=== PATIENT | male | born 1960 | race Caucasian/White ===

== ENCOUNTER 2024-09-19 21:12 | Emergency (ER) | payer MEDICARE, SELFPAY ==
--- NOTE | 2024-09-19 21:10 | CT_ITS ---
PROCEDURE INFORMATION: Exam: CTA Neck With Contrast Exam date and time: 09/19/2024 9:17 PM Age: 64 years old Clinical indication: Stroke-like symptoms; Other: Stroke alert TECHNIQUE: Imaging protocol: Computed tomographic angiography of the neck with contrast. Exam focused on the cervical segments of the vasculature. 3D rendering (Not supervised by radiologist): MIP and/or 3D reconstructed images were created by the technologist. Radiation optimization: All CT scans at this facility use at least one of these dose optimization techniques: automated exposure control; mA and/or kV adjustment per patient size (includes targeted exams where dose is matched to clinical indication); or iterative reconstruction. Contrast material: ISO 370; Contrast volume: 80 ml; Contrast route: INTRAVENOUS (IV); COMPARISON: CT ANGIO HEAD 09/19/2024 9:17 PM FINDINGS: Right common carotid artery: No stenosis. No dissection or occlusion. Right internal carotid artery: There is calcified and soft plaque in the proximal right internal carotid artery with 90% stenosis. Right external carotid artery: No occlusion or stenosis of the origin. Left common carotid artery: No stenosis. No dissection or occlusion. Left internal carotid artery: There are calcified plaques in the proximal left internal carotid artery with 20% stenosis. The distal extracranial segment is mildly ectatic. Left external carotid artery: No occlusion or stenosis of the origin. Right vertebral artery: There is a calcified plaque at the origin of the right vertebral artery which is partly obscured by artifact. Stenosis appears mild. No stenosis of the V2 or V3 segments. Left vertebral artery: There is a calcified plaque at the origin of the left vertebral artery with mild stenosis. Lymph nodes: There are multiple large calcified lymph nodes in the mediastinum. Soft tissues: Normal. No significant soft tissue swelling. Bones/joints: Spondylosis and disc space narrowing at C4-C5 and C5-C6. IMPRESSION: 1. Calcified and soft plaque in the proximal right internal carotid artery with 90% stenosis. 2. 20% stenosis of the proximal left internal carotid artery. 3. Mild stenosis of the origins of the vertebral arteries. 4. Markedly enlarged and calcified lymph nodes noted in the visible portion of the mediastinum REFERENCES: NASCET CRITERIA. The degree of stenosis in the cervical segment of the internal carotid artery is based on NASCET criteria. Normal is no stenosis. Mild is less than 50% stenosis. Moderate is 50-69% stenosis. Severe is 70% to 99% stenosis. Total occlusion is no detectable patent lumen.
--- NOTE | 2024-09-19 21:10 | CT_ITS ---
PROCEDURE INFORMATION: Exam: CT Head Without Contrast Exam date and time: 09/19/2024 9:13 PM Age: 64 years old Clinical indication: Stroke-like symptoms; Other: Stroke alert TECHNIQUE: Imaging protocol: Computed tomography of the head without contrast. Radiation optimization: All CT scans at this facility use at least one of these dose optimization techniques: automated exposure control; mA and/or kV adjustment per patient size (includes targeted exams where dose is matched to clinical indication); or iterative reconstruction. Other technique: STROKE PROTOCOL was implemented. COMPARISON: No relevant prior studies available. FINDINGS: Limitations: Reconstructions were performed at oblique angles. No coronal or sagittal reconstructions. Brain: There is volume loss. There is periventricular white matter lucency most consistent with chronic microvascular disease. No acute infarct is identified. There is no hemorrhage or extra-axial collection. Cerebral ventricles: No ventriculomegaly. Paranasal sinuses: Visualized sinuses are unremarkable. No fluid levels. Mastoid air cells: Visualized mastoid air cells are well aerated. Bones: Unremarkable. No acute fracture. Soft tissues: Unremarkable. IMPRESSION: 1. Volume loss and chronic microvascular disease. 2. No acute intracranial lesion or injury ASSESSMENT: ASPECTS ([place] Stroke Program Early CT Score) is 10.
--- NOTE | 2024-09-19 21:10 | CT_ITS ---
PROCEDURE INFORMATION: Exam: CTA Head With Contrast, Arteriography Exam date and time: 09/19/2024 9:17 PM Age: 64 years old Clinical indication: Stroke-like symptoms; Other: Stroke alert TECHNIQUE: Imaging protocol: Computed tomographic angiography of the head with contrast. Exam focused on the arteries. 3D rendering (Not supervised by radiologist): MIP and/or 3D reconstructed images were created by the technologist. Radiation optimization: All CT scans at this facility use at least one of these dose optimization techniques: automated exposure control; mA and/or kV adjustment per patient size (includes targeted exams where dose is matched to clinical indication); or iterative reconstruction. Contrast material: ISO 370; Contrast volume: 80 ml; Contrast route: INTRAVENOUS (IV); COMPARISON: CT HEAD/BRAIN WO CON 09/19/2024 9:13 PM FINDINGS: Limitations: No coronal or sagittal reconstructions. Reconstructions were performed in oblique planes. ANTERIOR CIRCULATION: Right internal carotid artery: Intracranial segment is patent with no significant stenosis. No aneurysm. Right middle cerebral artery: No occlusion or significant stenosis. No aneurysm. Right anterior cerebral artery: No occlusion or significant stenosis. No aneurysm. Left internal carotid artery: Intracranial segment is patent with no significant stenosis. No aneurysm. Left middle cerebral artery: As seen on series 7 images [id number], complete occlusion of proximal left MCA M2 segment. This is also seen on sagittal reconstructions [id number] and coronal reconstructions 60-60 to Left anterior cerebral artery: No occlusion or significant stenosis. No aneurysm. POSTERIOR CIRCULATION: Right vertebral artery: No occlusion or significant stenosis. No aneurysm. Left vertebral artery: No occlusion or significant stenosis. No aneurysm. Basilar artery: No occlusion or significant stenosis. No aneurysm. Right posterior cerebral artery: No occlusion or significant stenosis. No aneurysm. Left posterior cerebral artery: No occlusion or significant stenosis. No aneurysm. Brain: No definite mass, mass effect, or midline shift. See head CT Cerebral ventricles: No ventriculomegaly. Bones/joints: Unremarkable. No acute fracture. Soft tissues: Unremarkable. IMPRESSION: Left MCA M2 occlusion
[2024-09-19 21:12] VITALS: BP 200/122; PULSE 74; RESP 18; TEMP 37.2; O2SAT 98; BMI 51.3
[2024-09-19] MEDS: 0.9 % SODIUM CHLORIDE 50 ML VIAL IV (21:30)
[2024-09-19] MEDS: SODIUM CHLORIDE 0.9% 10ML SYR (RAD ONLY) 10 ML IV (21:30)
[2024-09-19] MEDS: IOPAMIDOL-370 (76%);100ML BOTTLE 80 ML IV (21:30)
--- NOTE | 2024-09-19 21:31 | PC.NURSE ---
images being shared with [facility]
--- NOTE | 2024-09-19 21:36 | HMH.EDGENADL ---
Discharge Plan Disposition Chief Complaint: Neuro Symptoms/Deficit Clinical Impressions Clinical Impression: Cerebrovascular accident Print Language Print Language: Tajik Discharge ED Provider: Mandy Larios General Adult HPI General Chief complaint: Neuro Symptoms/Deficit Stated complaint: stroke alert Time Seen by Provider: 09/19/24 21:27 Mode of Arrival: EMS Source of Information: EMS Limitations: Altered Mental Status Description of Symptoms (Recalled from ER Triage Doc. by RN): Pt arrived via ems from home, found by family to have R sided weakness/ams. LKN 1300, blood sugar 60 mg/dl on scene. FSBF 259 now during triage after 1 amp of d10. code stroke called at 2107 History of Present Illness HPI narrative: Patient is a 64-year-old with no known past medical history who presents today with acute right-sided weakness and altered mental status last known normal 1300 per EMS. Blood sugar was normal. He went straight to CT scan after being stroke alerted in the field CT angios and noncontrasted CT scan of the head were performed by stroke protocol. Further history unable to be obtained secondary patient's clinical status. Related Data Allergies Allergy/AdvReac Type Severity Reaction Status Date / Time No Known Allergies Allergy Verified 08/15/19 10:32 [facility] Disclaimer: The information contained in this section may have been updated after the patient was seen, as this information can be updated by other users. Social History Smoking Status: Unknown if ever smoked alcohol intake: never current occupational status: other Travel in the last 8 weeks: None ROS Obtained: Yes All systems reviewed & no additional complaints except as documented Physical Exam General General appearance: other (Patient is awake but not interactive with me) Respiratory Respiratory exam: Present normal lung sounds bilaterally Cardiovascular Cardiovascular exam: Present regular rate Neurological Exam Neurological exam: Present other (Awake he has flaccid paralysis of his right upper and right lower extremity he is moving his left upper and left lower extremity given his profound aphasia and being mute further neurologic exam unable to be obtained NIH stroke scale per my evaluation is 18) Medical Decision Making Medical Records Screening: Per USPSTF and CDC recommendations, given the prevalence of disease in our region, it is our hospital?s policy to screen for HIV and viral Hepatitis for all patients aged 18 and over and those with ongoing risk factors. Justin Inquiry Pt receiving controlled substance: No Vital Signs: 09/19/24 21:12 Temperature 98.9 F Temperature Source Rectal Pulse Rate [Apical] 74 Respiratory Rate 18 Blood Pressure [Right Arm] 200/122 H Blood Pressure Mean [Right Arm] 148 02 Sat by Pulse Oximetry 98 Oxygen Delivery Method Room Air Orders (Tests/Meds): ED MEDICATIONS Generic Name Dose Route Start Last Admin Trade Name Torsten PRN Reason Stop Dose Admin Sodium Chloride 1,000 mls @ 999 mls/hr 09/19/24 21:45 Sod Chlor 0.9% 1000ml Bag IV 09/19/24 22:45 .[id number] LINNETTE Discontinued Medications Generic Name Dose Route Start Last Admin Trade Name Torsten PRN Reason Stop Dose Admin Iopamidol 80 ml 09/19/24 21:25 09/19/24 21:30 Iopamidol-370 (76%);100ml Bottle IV 09/19/24 21:26 80 ml ONCE ONE Administration Sodium Chloride 50 ml 09/19/24 21:25 09/19/24 21:30 0.9 % Sodium Chloride 50 Ml Vial IV 09/19/24 21:26 50 ml ONCE ONE Administration Sodium Chloride 10 ml 09/19/24 21:25 09/19/24 21:30 Sodium Chloride 0.9% 10ml Syr (Rad Only) IV 09/19/24 21:26 10 ml ONCE ONE Administration ORDERS Category Date Time Status CT angio head Stat Cat Scan 09/19/24 21:[address] angio neck Stat Cat Scan 09/19/24 21:[address] head/brain wo con Stat Cat Scan 09/19/24 21:10 Completed CXR --portable [XR chest portable] Stat Exams 09/19/24 21:40 Taken CBC w/Auto Diff [Complete Blood Count Auto Diff] Stat Lab 09/19/24 21:34 Received CMP [Comprehensive Metabolic Panel] Stat Lab 09/19/24 21:34 Received HIV (1&2) Antibody Rapid Stat Lab 09/19/24 21:34 Received Hep C Ab with Reflex to RNA Stat Lab 09/19/24 21:34 Received PT/PTT Stat Lab 09/19/24 21:34 Received Trop I [Troponin I] Stat Lab 09/19/24 21:34 Received Troponin I Q3H Lab 09/20/24 00:45 Ordered Troponin I Q3H Lab 09/20/24 03:45 Ordered Medical Decision Narrative: Patient is a 64 yo presenting with acute change in mental status and R sided weakness. NIHSS 18. This is highly concerning for a cortical stroke or an LVO. He is outside of any window for thrombolytics. He is hypertensive 207/128. Allowing for permissive hypertension at the moment as we will not be acutely dropping for thrombolytics. Sharing imaging with [facility]. CT scans performed which I personally interpreted which showed no intracranial hemorrhage however there is an acute left M1 occlusion. Images were shared Mumboe refugio. Dr. Black with [facility] neurosurgery accepted the patient for thrombectomy. Patient was accepted to go to the [place] emergency department and then straight to thrombectomy. Neurosurgery is aware the patient. He is on the ED expected board. Patient is hypertensive no further inventions done. Family was made aware of this patient weighs nearly 400 pounds we are trying to see if the patient can fly. Patient will be transferred as quickly as possible. Critical Care Critical Care Time Critical Care Time: Yes Attestation: On , the high probability of a clinically significant, sudden or life threatening deterioration of the following system(s) required my full and direct attention, intervention and personal management. The time I documented below is in addition to time spent performing reported procedures but includes the following listed in this critical care notation. Total Time Total Critical Care Time: 35
--- NOTE | 2024-09-19 21:40 | XR_ITS ---
PROCEDURE INFORMATION: Exam: XR Chest Exam date and time: 09/19/2024 9:39 PM Age: 64 years old Clinical indication: Dyspnea TECHNIQUE: Imaging protocol: Radiologic exam of the chest. Views: 1 view. COMPARISON: CT ANGIO NECK 09/19/2024 9:17 PM FINDINGS: Lungs: Unremarkable. No consolidation. Pleural spaces: Unremarkable. No pleural effusion. No pneumothorax. Heart/Mediastinum: Extensively calcified right paratracheal round densities. Bones/joints: Unremarkable. IMPRESSION: 1. Extensive round calcified densities in the right paratracheal region presumably calcified lymph nodes. Differential is calcified mass. 2. No acute findings
--- NOTE | 2024-09-19 21:40 | ECG_ITS ---
APPROVED REPORT Exam: Resting ECG HR:68 bpm ECG Measurements Heart Rate 68 AXES QRSd 109 QRS -55 QT 418 T 68 QTc 436 Conclusion ATRIAL FIBRILLATION LEFT AXIS DEVIATION [QRS AXIS < -30] ANTEROSEPTAL MYOCARDIAL INFARCTION , OF INDETERMINATE AGE [40+ ms Q WAVE IN V1-V4] ABNORMAL ECG UNCONFIRMED REPORT Electronically signed by : Ronnell Larios, 09/19/2024 23:11:07
[2024-09-19] MEDS: 0.9 % SODIUM CHLORIDE 1000ML 1,000 ML 999 ML IV (21:54)
[2024-09-19 21:56] LABS: Basophils # 0.1 K/mm3 (0-0.2); Basophils % 1.3 % (0.1-2.0); Eosinophils # 0.1 K/mm3 (0.0-0.4); Eosinophils % 1.5 % (0.1-12.0); Hematocrit 50.6 % (42.0-52.0); Hemoglobin 16.7 g/dL (14.1-18.0); Lymphocytes # 1.4 K/mm3 (0.7-4.5); Lymphocytes % 22.9 % (10-50); Mean Corpuscular HGB Conc 32.9 g/dL (31.8-35.4); Mean Corpuscular Volume 94.2 fl (80-94); Mean Platelet Volume 9.5 fl (7.4-10.4); Monocytes # 0.4 K/mm3 (0.1-1.0); Monocytes % 6.4 % (1.7-9.3); Neutrophils # 4.1 K/mm3 (1.8-7.8); Neutrophils % 67.9 % (37.0-80.0); Platelet Count 146 K/mm3 (142-424); Red Blood Count 5.37 M/mm3 (4.60-6.20); Red Cell Distribution Width 14.2 % (11.5-17.5)
--- NOTE | 2024-09-19 21:57 | PC.NURSE ---
per Dr. Larios, [facility] called and he is aware of the read
[2024-09-19 22:00] LABS: Albumin Level 3.7 g/dl (3.5-5.0); Chloride 101 mmol/L (98-107); Potassium 3.8 mmoL/L (3.5-5.1); Sodium 137 mmol/L (136-145)
[2024-09-19 22:03] LABS: Alanine Aminotransferase 19 U/L (12-78); Albumin/Globulin Ratio 1.2 (1.1-1.8); Alkaline Phosphatase 92 U/L (38-126); Anion Gap 5.8 mEq/L (5-15); Aspartate Amino Transferase 29 U/L (17-59); Bilirubin,Total 0.8 mg/dl (0.2-1.3); Blood Urea Nitrogen 21 mg/dl (9-20); Carbon Dioxide 34 mmol/L (22.0-30.0); Creatinine Clearance Estimated 86 mL/min (50-200); Estimated Glomerular Filt Rate 75 ml/min (>60); GFR (African American) 91 ML/MIN (>60); Globulin 3.1 g/dL (1.3-3.2); Total Protein,Serum 6.8 g/dl (6.3-8.2)
[2024-09-19 22:04] LABS: Calcium 8.6 mg/dl (8.4-10.2); Glucose 216 mg/dl (74-100)
[2024-09-19 22:21] LABS: Troponin I 0.01 ng/ml (0.00-0.034)
[2024-09-19 22:27] LABS: Activated Partial Thrombo Time 28.4 seconds (22.8-30.6); INR 0.97 (0.9-1.1); Prothrombin Time 10.9 seconds (10.1-12.5)
[2024-09-19 22:45] VITALS: BP 200/111; PULSE 90; RESP 18; TEMP 37.2; O2SAT 97
[2024-09-19 22:52] VITALS: BP 200/111; PULSE 87; RESP 20; TEMP 37.2; O2SAT 98
[2024-09-19 23:13] LABS: HIV (1&2) Antibody Rapid NONREACTIVE (NONREACTIVE)
[2024-09-21 08:08] LABS: HCV Ab Non Reactive (Non Reactive)
== END 2024-09-19 22:45 | disposition short-term general hospital (02) ==
PROVIDERS: Emergency Provider Student in an Organized Health Care Education/Training Program
DX: I63.512 Cerebral infarction due to unspecified occlusion or stenosis of left middle cerebral artery (principal); R41.82 Altered mental status, unspecified; G81.91 Hemiplegia, unspecified affecting right dominant side; I10 Essential (primary) hypertension
CPT/HCPCS: 70450; 70496; 70498; 71045; 80053; 84484; 85025; 85610; 85730; 86803; 87389; 93005; 96360; 99291; J7030; Q9967

== ENCOUNTER 2024-11-10 08:49 | Outpatient (CLI) | payer MEDICARE, SELFPAY ==
--- NOTE | 2024-11-10 09:01 | XR_ITS ---
FINAL REPORT CLINICAL HISTORY: pain, fall COMPARISON: None FINDINGS: BILATERAL RIBS WITH CHEST Chest: The heart is normal in size. There are large bulky calcified right paratracheal lymph nodes measuring up to 11 x 6 cm in craniocaudal and transverse dimension. The lungs are clear. There is no pneumothorax. Ribs: 3 views demonstrate no acute displaced fracture. The visualized bony structures are well aligned. IMPRESSION: Large bulky right paratracheal adenopathy. No obvious rib fracture. Reviewed, Interpreted and Dictated by Sudhir Salgado MD Transcribed by Jess Dobson Authenticated and . [facility]
--- NOTE | 2024-11-10 09:01 | XR_ITS ---
FINAL REPORT CLINICAL HISTORY: pain COMPARISON: None FINDINGS: RIGHT SHOULDER Three views demonstrate no acute fracture or dislocation. The visualized joint spaces are normally aligned. The soft tissues are unremarkable. There is a large bulky presumed calcified mediastinal lymph node partially visualized in the medial chest. IMPRESSION: No acute bony abnormality. Reviewed, Interpreted and Dictated by Sudhir Salgado MD Transcribed by Yaa Langley Authenticated and [facility]
--- NOTE | 2024-11-10 09:01 | XR_ITS ---
FINAL REPORT CLINICAL HISTORY: pain, fall COMPARISON: None FINDINGS: 3 views of the lumbar spine were obtained. There is no evidence of fracture. There is no malalignment. There is mild anterior osteophyte formation at L3-4 and L5-S1. Moderate facet sclerosis is noted in the lower lumbar spine. No paraspinous soft tissue abnormalities identified. IMPRESSION: No acute bony abnormality. Reviewed, Interpreted and Dictated by Sudhir Salgado MD Transcribed by Jess Dobson Authenticated and [facility]
== END 2024-11-10 23:59 | disposition home or self-care (01) ==
PROVIDERS: PCP Pediatrics; Visit Provider Pediatrics
DX: R07.82 Intercostal pain (principal)
CPT/HCPCS: 71111; 72100; 72110; 73030

== ENCOUNTER 2024-11-20 13:12 | Outpatient (CLI) | payer MEDICARE, SELFPAY ==
--- NOTE | 2024-11-20 13:17 | CT_ITS ---
FINAL REPORT TECHNIQUE: Noncontrast exam This study was performed with techniques to keep radiation doses as low as reasonably achievable, (ALARA). Individualized dose reduction techniques using automated exposure control or adjustment of mA and/or kV according to the patient''s size were employed. CLINICAL HISTORY: STONE PROTOCOL COMPARISON: None FINDINGS: CT ABDOMEN PELVIS WITHOUT CONTRAST: Abdomen: Lung bases are clear. Liver, spleen, pancreas and adrenal glands have a normal CT appearance in their limited unenhanced state. Cholelithiasis is present without evidence of gallbladder wall thickening or biliary duct obstruction. There is a distal aortic aneurysm measuring 42 mm in diameter without rupture. 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 The kidneys demonstrate nonobstructing stones present in the right kidney without evidence of hydronephrosis or ureteral stone. No obvious renal mass is present. No ureteral stones are present. Pelvis: No distal ureteral stones are seen. The appendix is normal in appearance. There is advanced diverticulosis of the descending and sigmoid colon without evidence of inflammatory change. There is bladder wall thickening with adjacent stranding, suspicious for cystitis. A Rahman catheter is present in the bladder. No fluid collection or adenopathy is seen. IMPRESSION: Bladder wall thickening with adjacent stranding, suspicious for cystitis. Nonobstructing stones are present in the right kidney, with no evidence of hydronephrosis or ureteral stone. Distal abdominal aortic aneurysm, 42 mm in size, without rupture. Reviewed, Interpreted and Dictated by Óscar Astudillo MD Transcribed by Cassia Burris Authenticated and [facility]
== END 2024-11-20 23:59 | disposition home or self-care (01) ==
LOC: RAD 13:14
PROVIDERS: Visit Provider Pediatrics
DX: R31.9 Hematuria, unspecified (principal); R33.9 Retention of urine, unspecified; M54.9 Dorsalgia, unspecified
CPT/HCPCS: 74176

== ENCOUNTER 2024-11-20 13:46 | Emergency (ER) | payer MEDICARE, SELFPAY ==
--- NOTE | 2024-11-20 13:56 | XR_ITS ---
PROCEDURE INFORMATION: Exam: XR Chest Exam date and time: 11/20/2024 2:20 PM Age: 64 years old Clinical indication: Shortness of breath; Additional info: SOA TECHNIQUE: Imaging protocol: Radiologic exam of the chest. Views: 1 view. COMPARISON: 1. CR XR RIBS BI MIN 4V W CXR1V 11/10/2024 9:[address] ANGIO NECK 09/19/2024 9:17 PM FINDINGS: Airway: No definite airway narrowing. Lungs: Lungs have no airspace consolidation. Pleural spaces: No pleural effusion. No pneumothorax. Heart/Mediastinum: Bulky, calcified, left suprahilar lymph nodes are again noted having a combined diameter approximately 10 x 6.5 cm. Cardiomegaly is unchanged and has no vascular congestion. Bones/joints: No fractures or bone lesions. IMPRESSION: 1. No acute pulmonary disease. 2. Cardiomegaly is unchanged. 3. Bulky, calcified lymphadenopathy in the right suprahilar and paratracheal mediastinum is unchanged.
--- NOTE | 2024-11-20 13:57 | ED_ITS ---
Discharge Plan Disposition Patient Disposition: Home, Self-Care Condition: Good Prescriptions Prescriptions: No Action nifedipine 30 mg Tablet Extended Release 24hr 30 mg PO DAILY atorvastatin 80 mg Tablet 80 mg PO DAILY donepezil 10 mg Tablet 10 mg PO DAILY lisinopril 20 mg Tablet 20 mg PO BID ciprofloxacin HCl 500 mg Tablet 500 mg PO BID spironolactone 25 mg Tablet 25 mg PO DAILY tamsulosin 0.4 mg Capsule 0.4 mg PO HS magnesium oxide 250 mg magnesium Tablet 250 mg PO DAILY escitalopram oxalate 10 mg Tablet 10 mg PO DAILY Eliquis 5 mg Tablet 5 mg PO BID Incruse Ellipta 62.5 mcg/actuation Blister With Device 1 inh INHALATION DAILY mometasone 100 mcg/actuation Hfa Aerosol Inhaler 2 puff INHALATION BID tramadol 50 mg Tablet 50 mg PO Q8H Saccharomyces boulardii 250 mg Capsule 250 mg PO BID Referrals Follow up/Referrals: Zach Pratt MD [Referring] - See instructions (4.2 cm abdominal aortic aneurysm.) Provider,MD Christine [Primary Care Provider] - See instructions Miguel Correa MD [Physician] - See instructions (Follow-up for right sided suprahilar lymphadenopathy noted on chest x-ray) Activity Restrictions/Add. Instructions Additional Instructions/Restrictions: Return to the emergency department for any worsening signs or symptoms, urine culture will be sent off and will call with any report/culture growth/recommendations. Continue with ciprofloxacin p.o. antibiotic as prescribed. Patient will need follow-up with pulmonology and vascular surgery regarding chest x-ray and CT abdomen pelvis with contrast findings. Clinical Impressions Clinical Impression: Acute UTI, AAA (abdominal aortic aneurysm), Lymphadenopathy, mediastinal Instructions Patient Instructions: DI for Acute Abdominal Pain Print Language Print Language: Welsh Discharge ED Provider: Mane Washington [facility] Adult HPI <NEHEMIAH Eubanks - Last Filed: 11/20/24 15:36> General Chief complaint: Abdominal Pain Stated complaint: WEAKNESS Time Seen by Provider: 11/20/24 13:56 Mode of Arrival: EMS Source of Information: Patient, EMS and Medical Record History of Present Illness HPI narrative: 64-year-old male presents to the emergency department via EMS from residential facility for concern for UTI versus kidney stones, patient had CT abdomen pelvis with contrast performed here at the hospital today, which yielded no obstructing stone, yielded chronic appearing AAA at 42 mm, and some possible radiographic evidence of cystitis and thus was sent to the emergency department for further evaluation. Per EMS and residential records patient has had some hematuria, abdominal distention/pain, and urinary type symptomatology for the last 2 days. 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 Residual right-sided deficits of the right lower and upper extremity. He is a GCS of 11, follows commands, opens eyes spontaneously but no verbal response. He nods his head and denies any other acute symptomatology except for some pain with palpation to his abdomen. Other past medical history consistent with COPD, hemiplegia/hemiparesis of the right dominant side, dysphagia, obesity, hyperlipidemia, hypertension, atrial fibrillation,/stenosis of right carotid artery. Per residential records patient has been on Flomax and ciprofloxacin p.o. antibiotic for the last 2 days. Unsure of history of substance abuse, initial triage vitals unremarkable. Related Data Home Medications ?Medication ?Instructions ?Recorded ?Confirmed Saccharomyces boulardii 250 mg 250 mg PO BID 11/20/24 11/20/24 capsule apixaban 5 mg tablet (Eliquis) 5 mg PO BID 11/20/24 11/20/24 atorvastatin 80 mg tablet 80 mg PO DAILY 11/20/24 11/20/24 ciprofloxacin HCl 500 mg tablet 500 mg PO BID 11/20/24 11/20/24 donepezil 10 mg tablet 10 mg PO DAILY 11/20/24 11/20/24 escitalopram oxalate 10 mg tablet 10 mg PO DAILY 11/20/24 11/20/24 lisinopril 20 mg tablet 20 mg PO BID 11/20/24 11/20/24 magnesium oxide 250 mg PO DAILY 11/20/24 11/20/24 mometasone 100 mcg/actuation HFA 2 puff inhalation BID 11/20/24 11/20/24 aerosol inhaler nifedipine 30 mg tablet,extended 30 mg PO DAILY 11/20/24 11/20/24 release 24 hr spironolactone 25 mg tablet 25 mg PO DAILY 11/20/24 11/20/24 tamsulosin 0.4 mg capsule 0.4 mg PO HS 11/20/24 11/20/24 tramadol 50 mg tablet 50 mg PO Q8H 11/20/24 11/20/24 umeclidinium 62.5 mcg/actuation 1 inh inhalation DAILY 11/20/24 11/20/24 blister powder for inhalation (Incruse Ellipta) Allergies Allergy/AdvReac Type Severity Reaction Status Date / Time No Known Allergies Allergy Verified 11/20/24 14:22 [facility] <NEHEMIAH Eubanks - Last Filed: 11/20/24 15:36> [facility] Disclaimer: The information contained in this section may have been updated after the patient was seen, as this information can be updated by other users. Social History (Updated 09/19/24 @ 21:53 by Mandy Larios MD) Smoking Status: Unknown if ever smoked alcohol intake: never current occupational status: other Travel in the last 8 weeks: None Have you lived/traveled outside US in past 30 days?: No Contact w/someone who lives/traveled outside US past 30 days?: No Exposure to someone with infectious disease in past 14 days?: No Do you have a fever (greater than 100.4 F or 38 C)?: No Have you tested positive for COVID-19: No Exposed to someone with COVID-19 in past 14 days?: No Do you have a sore throat?: No Do you have a cough?: No Do you have any weakness?: No Do you have any diarrhea?: No Are you experiencing any unusual bleeding?: No Do you have any muscle aches/pain?: No Do you have any abdominal pain?: No Are you experiencing loss of taste or smell?: No <NEHEMIAH Eubanks - Last Filed: 11/20/24 15:36> ROS Obtained: Yes All systems reviewed & no additional complaints except as documented Physical Exam <NEHEMIAH Eubanks - Last Filed: 11/20/24 15:36> General General appearance: alert and in no apparent distress Head Head exam: atraumatic and normocephalic Eye Eye exam: Present PERRL and EOMI ENT ENT exam: Present mucous membranes moist Neck Neck exam: Present normal inspection Chest Chest inspection: Present normal inspection and symmetric chest wall rise Respiratory Respiratory exam: Present normal lung sounds bilaterally; Absent respiratory distress, wheezes or stridor Cardiovascular Cardiovascular exam: Present regular rate and normal rhythm Abdominal Exam Abdominal exam: Present soft and tenderness; Absent rebound or rigidity Abdominal tenderness: Present suprapubic and mild Comment: Patient nods/endorses mild pain palpation to the suprapubic area exam: Present normal inspection, urethral discharge and other (Some mild urethral discharge, no real erythema around the glans penis, there is Rahman catheter inserted) Extremities Exam Extremities exam: Present normal inspection Neurological Exam Neurological exam: Present alert and other (Patient has GCS of 11, see HPI for detailed past medical history, with right-sided hemiparesis/hemiplegia, moves extremities to command of the left no focal deficit present on the left,) Psychiatric Psychiatric exam: Present normal affect Skin Skin exam: Present warm and dry Medical Decision Making <NEHEMIAH Eubanks - Last Filed: 11/20/24 15:36> Medical Records Medical records reviewed: Yes I reviewed the patient's medical records. Screening: Per USPSTF and CDC recommendations, given the prevalence of disease in our region, it is our hospital?s policy to screen for HIV and viral Hepatitis for all patients aged 18 and over and those with ongoing risk factors. Justin Inquiry Pt receiving controlled substance: No Justin was queried for this patient: No Vital Signs: 11/20/24 14:13 11/20/24 14:30 11/20/24 15:01 Temperature 98.6 F Temperature Source Oral Pulse Rate 77 68 Pulse Rate [Left] 85 Respiratory Rate 21 20 18 Blood Pressure 128/90 109/87 L Blood Pressure [Right Arm] 116/82 Blood Pressure Mean [Right Arm] 93 Blood Pressure Source [Right Arm] Automatic Cuff Blood Pressure Position [Right Arm] Sitting 02 Sat by Pulse Oximetry 96 95 93 L Oxygen Delivery Method Room Air Room Air Room Air 11/20/24 15:31 11/20/24 16:01 11/20/24 16:37 Temperature 98.0 F Temperature Source Pulse Rate 79 82 82 Pulse Rate [Left] Respiratory Rate 18 19 19 Blood Pressure 142/95 H 126/80 126/80 Blood Pressure [Right Arm] Blood Pressure Mean [Right Arm] Blood Pressure Source [Right Arm] Blood Pressure Position [Right Arm] 02 Sat by Pulse Oximetry 96 96 Oxygen Delivery Method Room Air Room Air Room Air Lab Data Lab results reviewed: Yes I reviewed the patient's lab results. Lab Results 11/20/24 14:48: WBC 6.7, RBC 5.12, Hgb 15.9, Hct 48.1, MCV 93.9, MCH 31.1, MCHC 33.1, RDW 13.9, Plt Count 163, MPV 12.1 H, Neut % (Auto) 71.1, Lymph % (Auto) 16.8, [place] % (Auto) 8.6, Eos % (Auto) 2.3, Baso % (Auto) 0.9, Neut # (Auto) 4.7, Lymph # (Auto) 1.1, [place] # (Auto) 0.6, Eos # (Auto) 0.2, Baso # (Auto) 0.1, S odium 135 L, Potassium 4.1, Chloride 99, Carbon Dioxide 32 H, Anion Gap 8.1, BUN 13, Creatinine 0.70, Estimated Creat Clear 83, Estimated GFR 113, Est GFR ( Amer) 137, Glucose 122 H, Lactate 1.6, Calcium 9.0, Magnesium 1.6, Total Bilirubin 0.9, AST 60 H, ALT 33, Alkaline Phosphatase 108, Total Protein 6.5, Albumin 3.7, Globulin 2.8, Albumin/Globulin Ratio 1.3, Lipase 151, Urine Color Red, Urine Appearance Turbid, Urine pH 6.5, Ur Specific [place] 1.025, U rine Protein 3+ A, Urine Glucose (UA) Negative, Urine Ketones Trace, Urine Blood 3+ A, Urine Nitrate Positive A, Urine Bilirubin Negative, Urine Urobilinogen >=8.0, Ur Leukocyte Esterase 1+ A, Urine RBC Tntc, Urine WBC 3-5, Ur Squamous Epith Cells Occasional, Calcium Oxalate Crystal Trace, Urine Bacteria 1+ 11/20/24 14:48 11/20/24 14:48 Orders (Tests/Meds): ORDERS Category Date Time Status XR chest portable Stat Exams 11/20/24 13:56 Completed Complete Blood Count Auto Diff Stat Lab 11/20/24 14:48 Completed Comprehensive Metabolic Panel Stat Lab 11/20/24 14:48 Completed Lactic Acid Stat Lab 11/20/24 14:48 Completed Lipase Stat Lab 11/20/24 14:48 Completed Magnesium Stat Lab 11/20/24 14:48 Completed Urinalysis and Microscopic Stat Lab 11/20/24 14:48 Completed Urine Culture Stat Micro 11/20/24 14:48 Received Medical Decision Narrative: 64-year-old male presents to the emergency department at the request of residential facility for evaluation of UTI versus kidney stone, differential diagnose, not limited to acute UTI, acute pyelonephritis, acute dehydration, enteritis, cardiac arrhythmia, electrolyte disturbance urinary outflow obstruction, pneumonia. I discussed this patient's case with Dr. [place] she saw and examined the patient as well Will obtain basic laboratory studies lactate lipase magnesium urinalysis chest x-ray and EKG. I reviewed the patient's EKG, atrial fibrillation at 77 bpm, QT interval within normal limits there is no STEMI. I reviewed the patient's CT abdomen pelvis with contrast along the corresponding radiological report, there is bladder wall thickening with adjacent stranding suspicious for cystitis nonobstructing stones are present in the right kidney with no evidence of hydro hydronephrosis or ureteral stone, distal abdominal aortic aneurysm at 42 mm in size without rupture. CMP is notable for normal lactic level, otherwise unremarkable. Over the patient's urinalysis, there is positive nitrites, 3+ hematuria, 3+ proteinuria, 1+ leukocyte esterase, 1+ urine bacteria. Discussed with the patient at the bedside, patient will be discharged home back to residential facility, he is already on ciprofloxacin p.o. antibiotic for UTI recommend continue with this therapy. Patient will need to follow-up with pulmonology regarding right-sided lymphadenopathy noted on chest x-ray similar over the interval. Patient voiced understanding is in agreement with current discharge plan/treatment plan. Strict ED return precautions given. Will facilitate transfer back to residential facility. Patient will follow-up with PCP/residential provider and vascular surgery/pulmonology. [place]: I was consulted by the KAYLEY, and we discussed the complexity of problems being addressed. I approved the treatment and management plan for this patient's care in the emergency department, thus performing a substantial portion of the medical decision making. ECG personally interpreted demonstrates atrial fibrillation, rate 77, normal axis, normal QTc, no STEMI, no ischemic changes. Patient is receiving basic laboratory workup including catheter exchange and urinalysis for possible cystitis. Rahman catheter site does look poorly kept on exam prior to catheter exchange. Labs reviewed demonstrate nonactionable CBC and CMP, UA pending. Patient handed off to Dr. Sow at physician shift change. Mane Washington MD <aMne Washington MD - Last Filed: 11/20/24 15:14> Vital Signs: 11/20/24 14:13 11/20/24 14:30 11/20/24 15:01 Temperature 98.6 F Temperature Source Oral Pulse Rate 77 68 Pulse Rate [Left] 85 Respiratory Rate 21 20 18 Blood Pressure 128/90 109/87 L Blood Pressure [Right Arm] 116/82 Blood Pressure Mean [Right Arm] 93 Blood Pressure Source [Right Arm] Automatic Cuff Blood Pressure Position [Right Arm] Sitting 02 Sat by Pulse Oximetry 96 95 93 L Oxygen Delivery Method Room Air Room Air Room Air 11/20/24 15:31 11/20/24 16:01 11/20/24 16:37 Temperature 98.0 F Temperature Source Pulse Rate 79 82 82 Pulse Rate [Left] Respiratory Rate 18 19 19 Blood Pressure 142/95 H 126/80 126/80 Blood Pressure [Right Arm] Blood Pressure Mean [Right Arm] Blood Pressure Source [Right Arm] Blood Pressure Position [Right Arm] 02 Sat by Pulse Oximetry 96 96 Oxygen Delivery Method Room Air Room Air Room Air Lab Data Lab Results 11/20/24 14:48: WBC 6.7, RBC 5.12, Hgb 15.9, Hct 48.1, MCV 93.9, MCH 31.1, MCHC 33.1, RDW 13.9, Plt Count 163, MPV 12.1 H, Neut % (Auto) 71.1, Lymph % (Auto) 16.8, [place] % (Auto) 8.6, Eos % (Auto) 2.3, Baso % (Auto) 0.9, Neut # (Auto) 4.7, Lymph # (Auto) 1.1, [place] # (Auto) 0.6, Eos # (Auto) 0.2, Baso # (Auto) 0.1, S odium 135 L, Potassium 4.1, Chloride 99, Carbon Dioxide 32 H, Anion Gap 8.1, BUN 13, Creatinine 0.70, Estimated Creat Clear 83, Estimated GFR 113, Est GFR ( Amer) 137, Glucose 122 H, Lactate 1.6, Calcium 9.0, Magnesium 1.6, Total Bilirubin 0.9, AST 60 H, ALT 33, Alkaline Phosphatase 108, Total Protein 6.5, Albumin 3.7, Globulin 2.8, Albumin/Globulin Ratio 1.3, Lipase 151, Urine Color Red, Urine Appearance Turbid, Urine pH 6.5, Ur Specific [place] 1.025, U rine Protein 3+ A, Urine Glucose (UA) Negative, Urine Ketones Trace, Urine Blood 3+ A, Urine Nitrate Positive A, Urine Bilirubin Negative, Urine Urobilinogen >=8.0, Ur Leukocyte Esterase 1+ A, Urine RBC Tntc, Urine WBC 3-5, Ur Squamous Epith Cells Occasional, Calcium Oxalate Crystal Trace, Urine Bacteria 1+ Orders (Tests/Meds): ORDERS Category Date Time Status XR chest portable Stat Exams 11/20/24 13:56 Completed Complete Blood Count Auto Diff Stat Lab 11/20/24 14:48 Completed Comprehensive Metabolic Panel Stat Lab 11/20/24 14:48 Completed Lactic Acid Stat Lab 11/20/24 14:48 Completed Lipase Stat Lab 11/20/24 14:48 Completed Magnesium Stat Lab 11/20/24 14:48 Completed Urinalysis and Microscopic Stat Lab 11/20/24 14:48 Completed Urine Culture Stat Micro 11/20/24 14:48 Received Medical Decision Narrative: 64-year-old male presents to the emergency department at the request of residential facility for evaluation of UTI versus kidney stone, differential diagnose, not limited to acute UTI, acute pyelonephritis, acute dehydration, enteritis, cardiac arrhythmia, electrolyte disturbance urinary outflow obstruction, pneumonia. I discussed this patient's case with Dr. Washington she saw and examined the patient as well Will obtain basic laboratory studies lactate lipase magnesium urinalysis chest x-ray and EKG. I reviewed the patient's EKG, atrial fibrillation at 77 bpm, QT interval within normal limits there is no STEMI. I reviewed the patient's CT abdomen pelvis with contrast along the corresponding radiological report, there is bladder wall thickening with adjacent stranding suspicious for cystitis nonobstructing stones are present in the right kidney with no evidence of hydro hydronephrosis or ureteral stone, distal abdominal aortic aneurysm at 42 mm in size without rupture. [place]: I was consulted by the KAYLEY, and we discussed the complexity of problems being addressed. I approved the treatment and management plan for this patient's care in the emergency department, thus performing a substantial portion of the medical decision making. ECG personally interpreted demonstrates atrial fibrillation, rate 77, normal axis, normal QTc, no STEMI, no ischemic changes. Patient is receiving basic laboratory workup including catheter exchange and urinalysis for possible cystitis. Rahman catheter site does look poorly kept on exam prior to catheter exchange. Labs reviewed demonstrate nonactionable CBC and CMP, UA pending. Patient handed off to Dr. Sow at physician shift change. Mane Washington MD <Jeannie Sow, DO - Last Filed: 11/20/24 16:56> Vital Signs: 11/20/24 14:13 11/20/24 14:30 11/20/24 15:01 Temperature 98.6 F Temperature Source Oral Pulse Rate 77 68 Pulse Rate [Left] 85 Respiratory Rate 21 20 18 Blood Pressure 128/90 109/87 L Blood Pressure [Right Arm] 116/82 Blood Pressure Mean [Right Arm] 93 Blood Pressure Source [Right Arm] Automatic Cuff Blood Pressure Position [Right Arm] Sitting 02 Sat by Pulse Oximetry 96 95 93 L Oxygen Delivery Method Room Air Room Air Room Air 11/20/24 15:31 11/20/24 16:01 11/20/24 16:37 Temperature 98.0 F Temperature Source Pulse Rate 79 82 82 Pulse Rate [Left] Respiratory Rate 18 19 19 Blood Pressure 142/95 H 126/80 126/80 Blood Pressure [Right Arm] Blood Pressure Mean [Right Arm] Blood Pressure Source [Right Arm] Blood Pressure Position [Right Arm] 02 Sat by Pulse Oximetry 96 96 Oxygen Delivery Method Room Air Room Air Room Air Lab Data Lab Results 11/20/24 14:48: WBC 6.7, RBC 5.12, Hgb 15.9, Hct 48.1, MCV 93.9, MCH 31.1, MCHC 33.1, RDW 13.9, Plt Count 163, MPV 12.1 H, Neut % (Auto) 71.1, Lymph % (Auto) 16.8, [place] % (Auto) 8.6, Eos % (Auto) 2.3, Baso % (Auto) 0.9, Neut # (Auto) 4.7, Lymph # (Auto) 1.1, [place] # (Auto) 0.6, Eos # (Auto) 0.2, Baso # (Auto) 0.1, S odium 135 L, Potassium 4.1, Chloride 99, Carbon Dioxide 32 H, Anion Gap 8.1, BUN 13, Creatinine 0.70, Estimated Creat Clear 83, Estimated GFR 113, Est GFR ( Amer) 137, Glucose 122 H, Lactate 1.6, Calcium 9.0, Magnesium 1.6, Total Bilirubin 0.9, AST 60 H, ALT 33, Alkaline Phosphatase 108, Total Protein 6.5, Albumin 3.7, Globulin 2.8, Albumin/Globulin Ratio 1.3, Lipase 151, Urine Color Red, Urine Appearance Turbid, Urine pH 6.5, Ur Specific [place] 1.025, U rine Protein 3+ A, Urine Glucose (UA) Negative, Urine Ketones Trace, Urine Blood 3+ A, Urine Nitrate Positive A, Urine Bilirubin Negative, Urine Urobilinogen >=8.0, Ur Leukocyte Esterase 1+ A, Urine RBC Tntc, Urine WBC 3-5, Ur Squamous Epith Cells Occasional, Calcium Oxalate Crystal Trace, Urine Bacteria 1+ Orders (Tests/Meds): ORDERS Category Date Time Status XR chest portable Stat Exams 11/20/24 13:56 Completed Complete Blood Count Auto Diff Stat Lab 11/20/24 14:48 Completed Comprehensive Metabolic Panel Stat Lab 11/20/24 14:48 Completed Lactic Acid Stat Lab 11/20/24 14:48 Completed Lipase Stat Lab 11/20/24 14:48 Completed Magnesium Stat Lab 11/20/24 14:48 Completed Urinalysis and Microscopic Stat Lab 11/20/24 14:48 Completed Urine Culture Stat Micro 11/20/24 14:48 Received Medical Decision Narrative: 64-year-old male presents to the emergency department at the request of residential facility for evaluation of UTI versus kidney stone, differential diagnose, not limited to acute UTI, acute pyelonephritis, acute dehydration, enteritis, cardiac arrhythmia, electrolyte disturbance urinary outflow obstruction, pneumonia. I discussed this patient's case with Dr. Washington she saw and examined the patient as well Will obtain basic laboratory studies lactate lipase magnesium urinalysis chest x-ray and EKG. I reviewed the patient's EKG, atrial fibrillation at 77 bpm, QT interval within normal limits there is no STEMI. I reviewed the patient's CT abdomen pelvis with contrast along the corresponding radiological report, there is bladder wall thickening with adjacent stranding suspicious for cystitis nonobstructing stones are present in the right kidney with no evidence of hydro hydronephrosis or ureteral stone, distal abdominal aortic aneurysm at 42 mm in size without rupture. CMP is notable for normal lactic level, otherwise unremarkable. Over the patient's urinalysis, there is positive nitrites, 3+ hematuria, 3+ proteinuria, 1+ leukocyte esterase, 1+ urine bacteria. Discussed with the patient at the bedside, patient will be discharged home back to residential facility, he is already on ciprofloxacin p.o. antibiotic for UTI recommend continue with this therapy. Patient will need to follow-up with pulmonology regarding right-sided lymphadenopathy noted on chest x-ray similar over the interval. Patient voiced understanding is in agreement with current discharge plan/treatment plan. Strict ED return precautions given. Will facilitate transfer back to residential facility. Patient will follow-up with PCP/residential provider and vascular surgery/pulmonology. [place]: I was consulted by the KAYLEY, and we discussed the complexity of problems being addressed. I approved the treatment and management plan for this patient's care in the emergency department, thus performing a substantial portion of the medical decision making. ECG personally interpreted demonstrates atrial fibrillation, rate 77, normal axis, normal QTc, no STEMI, no ischemic changes. Patient is receiving basic laboratory workup including catheter exchange and urinalysis for possible cystitis. Rahman catheter site does look poorly kept on exam prior to catheter exchange. Labs reviewed demonstrate nonactionable CBC and CMP, UA pending. Patient handed off to Dr. Sow at physician shift change. MD Juanjose Contreras DO: I was consulted by the KAYLEY, and we discussed the complexity of the problems being addressed. I approved the treatment and management plan for this patient's care in the emergency department, thus performing a substantive portion of the medical decision making. Jeannie Sow DO Critical Care <Mane Washington MD - Last Filed: 11/20/24 15:14> Critical Care Time Critical Care Time: No
--- NOTE | 2024-11-20 14:01 | ECG_ITS ---
APPROVED REPORT Exam: Resting ECG HR:77 bpm ECG Measurements Heart Rate 77 AXES QRSd 111 QRS -29 QT 400 T -5 QTc 432 Conclusion ATRIAL FIBRILLATION LOW QRS VOLTAGE IN PRECORDIAL LEADS [QRS DEFLECTION < 1.0 mV IN CHEST LEADS] POSSIBLE ANTERIOR MYOCARDIAL INFARCTION , OF INDETERMINATE AGE [30 ms Q WAVE IN V3/V4, OR R < 0.2 mV IN V4] No STEMI, poor R wave progression, likely old anterior RI Electronically signed by : DOUGLAS LOPEZ, 11/21/2024 07:08:42
[2024-11-20 14:13] VITALS: BP 116/82; PULSE 85; RESP 21; TEMP 37; O2SAT 96; BMI 45.5
[2024-11-20 14:30] VITALS: BP 128/90; PULSE 77; RESP 20; O2SAT 95
[2024-11-20 14:59] LABS: Basophils # 0.1 K/mm3 (0-0.2); Basophils % 0.9 % (0.1-2.0); Eosinophils # 0.2 K/mm3 (0.0-0.4); Eosinophils % 2.3 % (0.1-12.0); Hematocrit 48.1 % (42.0-52.0); Hemoglobin 15.9 g/dL (14.1-18.0); Lymphocytes # 1.1 K/mm3 (0.7-4.5); Lymphocytes % 16.8 % (10-50); Mean Corpuscular HGB Conc 33.1 g/dL (31.8-35.4); Mean Corpuscular Hemoglobin 31.1 pg (27.0-31.2); Mean Corpuscular Volume 93.9 fl (80-94); Mean Platelet Volume 12.1 fl (7.4-10.4); Monocytes # 0.6 K/mm3 (0.1-1.0); Monocytes % 8.6 % (1.7-9.3); Neutrophils # 4.7 K/mm3 (1.8-7.8); Neutrophils % 71.1 % (37.0-80.0); Platelet Count 163 K/mm3 (142-424); Red Blood Count 5.12 M/mm3 (4.60-6.20); Red Cell Distribution Width 13.9 % (11.5-17.5); White Blood Count 6.7 K/mm3 (4.8-10.8)
[2024-11-20 15:01] VITALS: BP 109/87; PULSE 68; RESP 18; O2SAT 93
[2024-11-20 15:08] LABS: Albumin Level 3.7 g/dl (3.5-5.0); Chloride 99 mmol/L (98-107)
[2024-11-20 15:09] LABS: Potassium 4.1 mmoL/L (3.5-5.1); Sodium 135 mmol/L (136-145)
[2024-11-20 15:11] LABS: Alanine Aminotransferase 33 U/L (12-78); Anion Gap 8.1 mEq/L (5-15); Aspartate Amino Transferase 60 U/L (17-59); Blood Urea Nitrogen 13 mg/dl (9-20); Carbon Dioxide 32 mmol/L (22.0-30.0); Creatinine Clearance Estimated 83 mL/min (50-200); Estimated Glomerular Filt Rate 113 ml/min (>60); GFR (African American) 137 ML/MIN (>60); Microscopic, Urine URINE MICROSCOPIC (MICROSCOPIC)
[2024-11-20 15:12] LABS: Albumin/Globulin Ratio 1.3 (1.1-1.8); Alkaline Phosphatase 108 U/L (38-126); Bilirubin,Total 0.9 mg/dl (0.2-1.3); Globulin 2.8 g/dL (1.3-3.2); Glucose 122 mg/dl (74-100); Lipase 151 U/L (23-300); Magnesium 1.6 mg/dl (1.6-2.3); Total Protein,Serum 6.5 g/dl (6.3-8.2)
[2024-11-20 15:16] LABS: Appearance,Urine TURBID (Clear); Bilirubin,Urine Negative (Negative); Blood, Urine 3+ (Negative); Glucose,Urine (UA) Negative (Negative); Ketones,Urine TRACE (Negative); Leukocyte Esterase,Urine 1+ (Negative); Nitrate,Urine POSITIVE (Negative); PH,Urine 6.5 (5.0-8.5); Protein,Urine 3+ (Negative); Specific Gravity, Urine 1.025 (1.005-1.030); Urobilinogen,Urine >=8.0 EU/dl (0.2)
[2024-11-20 15:17] LABS: Color,Urine RED (Yellow)
[2024-11-20 15:18] LABS: Lactic Acid 1.6 mmol/L (0.7-2.1)
[2024-11-20 15:23] LABS: Bacteria,Urine 1+ /lpf; Calcium Oxalate Crystals,Urine Trace /lpf; RBC,Urine TNTC #/hpf (0-3); Squamous Epithelial Cell,Urine Occasional #/hpf (0-5)
[2024-11-20 15:31] VITALS: BP 142/95; PULSE 79; RESP 18; O2SAT 96
--- NOTE | 2024-11-20 15:58 | PC.NURSE ---
report called to facility, TRN spoke with meseret.
[2024-11-20 16:01] VITALS: BP 126/80; PULSE 82; RESP 19; O2SAT 96
--- NOTE | 2024-11-20 16:04 | PC.NURSE ---
spoke with neftali boone at [facility] about pt transportation back to [facility]. states that they will send a truck up here.
[2024-11-20 16:37] VITALS: BP 126/80; PULSE 82; RESP 19; TEMP 36.7; O2SAT 96
== END 2024-11-20 16:37 | disposition home or self-care (01) ==
PROVIDERS: Physician Assistant; Emergency Provider Emergency Medicine
DX: N39.0 Urinary tract infection, site not specified (principal); R59.0 Localized enlarged lymph nodes; I71.40 Abdominal aortic aneurysm, without rupture, unspecified; R31.9 Hematuria, unspecified; R10.9 Unspecified abdominal pain; R14.0 Abdominal distension (gaseous); R53.1 Weakness
CPT/HCPCS: 71045; 80053; 81001; 83605; 83690; 83735; 85025; 87086; 93005; 99283

== ENCOUNTER 2024-12-17 10:11 | Outpatient (CLI) | payer MEDICARE, SELFPAY ==
--- NOTE | 2024-12-17 10:14 | US_ITS ---
FINAL REPORT CLINICAL HISTORY: Hematuria COMPARISON: None FINDINGS: ULTRASOUND BLADDER The urinary bladder is mildly distended up to 269 mL. The patient was unable to void. There is echogenic material in the dependent urinary bladder which could be blood or infectious debris or, less likely, mass. IMPRESSION: Unable to assess postvoid residual. Echogenic material dependent bladder. Consider cystoscopy. Reviewed, Interpreted and Dictated by Óscar Astudillo MD Transcribed by Jess Dobson Authenticated and [facility]
--- NOTE | 2024-12-17 10:14 | CT_ITS ---
FINAL REPORT TECHNIQUE: Axial CT of the abdomen and pelvis, without and with IV contrast. Coronal and sagittal images were obtained and reviewed. This study was performed with techniques to keep radiation doses as low as reasonably achievable, (ALARA). Individualized dose reduction techniques using automated exposure control or adjustment of mA and/or kV according to the patient''s size were employed. CLINICAL HISTORY: Hematuria COMPARISON: 11/20/2024 FINDINGS: Abdomen: Lung bases are clear. Liver has an unremarkable CT appearance. The spleen, pancreas and adrenal glands are unremarkable. Cholelithiasis is noted. Precontrast imaging shows improved right nephrolithiasis since the prior exam. There are at least 2 tiny 2 mm residual stones in the right kidney without evidence of obstruction. Mild bilateral renal scarring is noted. Postcontrast imaging of the kidneys shows no mass or obstruction. No bowel obstruction or fluid collection is seen. There is a distal aortic aneurysm measuring 42 mm with moderate mural thrombus. 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 Pelvis: The appendix is normal. Improved bladder wall thickening since the prior exam. The prostate is unremarkable. There is no free fluid. There is significant diverticular disease in the descending colon. IMPRESSION: Improved right nephrolithiasis with minimal residual. No active obstruction. Improved bladder wall thickening. Aortoiliac aneurysms. Reviewed, Interpreted and Dictated by Óscar Astudillo MD Transcribed by Jess Dobson Authenticated and . [facility]
[2024-12-17] MEDS: IOPAMIDOL-370 (76%);100ML BOTTLE 75 ML IV (10:53)
[2024-12-17] MEDS: SODIUM CHLORIDE 0.9% 10ML SYR (RAD ONLY) 10 ML IV (10:53)
== END 2024-12-17 23:59 | disposition home or self-care (01) ==
PROVIDERS: PCP Pediatrics; Visit Provider Urology
DX: R31.9 Hematuria, unspecified (principal); N39.0 Urinary tract infection, site not specified
CPT/HCPCS: 74178; 76857; Q9967